=== PATIENT | female | born 1940 | race Caucasian/White ===

== ENCOUNTER 2017-10-08 05:16 | Observation (INO) | payer OTHER ==
[2017-10-08] MEDS ORDERED: DEXAMETHASONE 4 MG/ML VIAL IVP ONE (05:53)
[2017-10-08] MEDS ORDERED: ONDANSETRON 4 MG/2 ML VIAL IVP ONE (05:53)
[2017-10-08] MEDS ORDERED: GABAPENTIN 300 MG CAP PO ONE (05:53)
[2017-10-08] MEDS ORDERED: POVIDONE-IODINE 20 ML in SODIUM CL IRRIG SOLUTION 500 ML IRR ONE (05:53)
[2017-10-08] MEDS ORDERED: TRANEXAMIC ACID 3,000 MG in NS (SYRINGE) 50 ML IRR ONE (05:53)
[2017-10-08] MEDS ORDERED: TRANEXAMIC ACID 1,000 MG in NS 100 ML IV ONE (05:53)
[2017-10-08] MEDS ORDERED: ceFAZolin 2 GM/DEXTROSE 100 ML IV ONE (05:53)
[2017-10-08] MEDS ORDERED: ROPIVACAINE 0.2% 80 MG, EPINEPHrine 0.2 MG, KETOROLAC TROMETHAMINE 30 MG in SYRINGE 0 ML IU ONE (05:53)
[2017-10-08] MEDS ORDERED: FAMOTIDINE 20 MG TAB PO ONE (05:53)
[2017-10-08] MEDS ORDERED: ACETAMINOPHEN 325 MG TAB PO ONE (05:53)
[2017-10-08] MEDS ORDERED: LR 1,000 ML IV ONE (05:56)
[2017-10-08] MEDS ORDERED: ceFAZolin 1 GM/5 ML SYR ONE (06:44)
[2017-10-08] MEDS ORDERED: VANCOMYCIN 1 GM VIAL ONE (06:44)
--- NOTE | 2017-10-08 06:57 | PDHPUP ---
History & Physical Update H&P update statement: This history and physical update is based on an assessment of the patient which was completed after admission or registration (within 24 hours), but prior to the surgery/procedure. H&P update: H&P reviewed & patient examined
[2017-10-08] MEDS ORDERED: MIDAZOLAM 2 MG/2 ML VIAL ONE (07:09)
[2017-10-08] MEDS ORDERED: PROPOFOL 200 MG/20 ML VIAL ONE ×2 (07:10→08:12)
[2017-10-08] MEDS ORDERED: BUPIVACAINE 0.25% 30 ML SDV ONE (07:11)
[2017-10-08] MEDS ORDERED: BUPIVACAINE/DEXTROSE 7.5MG/ML 2 ML SPINAL AMP SP ONE (07:18)
[2017-10-08] MEDS ORDERED: NALOXONE HCL 0.4 MG/ML INJ IVP PRN (07:57)
--- NOTE | 2017-10-08 07:57 | PDANEPAE ---
ANE Past Medical History - Cardiovascular History Hx Hypertension: No Hx Arrhythmias: No Hx Chest Pain: No Hx Coronary Artery / Peripheral Vascular Disease: No Hx CHF / Valvular Disease: No Hx Palpitations: No Cardiovascular History Comment: hx of PAF none since 2013 - Pulmonary History Hx COPD: No Hx Asthma/Reactive Airway Disease: No Hx Recent Upper Respiratory Infection: No Hx Oxygen in Use at Home: No Hx Sleep Apnea: No Sleep Apnea Screening Result - Last Documented: Negative - Neurologic History Hx Cerebrovascular Accident: No Hx Seizures: No Hx Dementia: No - Endocrine History Hx Diabetes: No - Renal History Hx Renal Disorders: No - Liver History Hx Hepatic Disorders: No - Neurological & Psychiatric Hx Hx Neurological and Psychiatric Disorders: No - Cancer History Hx Cancer: No - Congenital Disorder History Hx Congenital Disorders: No - GI History Hx Gastrointestinal Disorders: No - Other Health History Other Health History: macular degeneration. factor V leiden - Chronic Pain History Chronic Pain: No - Surgical History Prior Surgeries: R TKA. bilat cataract. L knee scoped ANE Review of Systems Review of Systems: - Exercise capacity METS (RN): 6 METS ANE Patient History - Allergies Allergies/Adverse Reactions: No Known Allergies Allergy (Verified 09/24/17 13:17) - Home Medications Home Medications: Aspirin [Aspirin 325 mg (*)] 325 mg PO DAILY 09/24/17 [Last Taken 10/03/17] Atorvastatin Calcium [Lipitor 10 mg (*)] 10 mg PO HS 09/24/17 [Last Taken ] C/E/Zn/Cu/OM3/DHA/EPA/LUT/ZEAX [Preservision Areds 2 Softgel] 1 each PO BID [Last Taken 10/03/17] Herbals/Supplements -Info Only 1 ea PO DAILY 09/24/17 [Last Taken 10/03/17] [place]-3 Fatty Acids [Fish Oil 1000 mg (*)] 1,000 mg PO DAILY 09/24/17 [Last Taken 10/03/17] - NPO status NPO Since - Liquids (Date): 10/07/17 NPO Since - Liquids (Time): 22:00 NPO Since - Solids (Date): 10/07/17 NPO Since - Solids (Time): 21:00 - Smoking Hx Smoking Status: Never smoked - Family Anes Hx Family Hx Anesthesia Complications: none ANE Labs/Vital Signs - Vital Signs Blood Pressure: 146/85 Heart Rate: 57 Respiratory Rate: 16 O2 Sat (%): 95 Height: 172.72 cm Weight: 68.039 kg ANE Physical Exam - Airway Neck exam: FROM Mallampati Score: Class 1 Mouth exam: normal dental/mouth exam - Pulmonary Pulmonary: no respiratory distress, no rales or rhonchi - Cardiovascular Cardiovascular: regular rate and rhythym, no murmur, rub, or gallop - ASA Status ASA Status: II ANE Anesthesia Plan Anesthesia Plan: spinal Regional Anesthesia: continuous NB, adductor canal FNB
[2017-10-08] MEDS ORDERED: LR 500 ML IV PRN (08:03)
[2017-10-08] MEDS ORDERED: ALBUTEROL 3 ML DEYVIAL IH PRN (08:03)
[2017-10-08] MEDS ORDERED: fentaNYL 100 MCG/2 ML INJ IVP PRN (08:03)
[2017-10-08] MEDS ORDERED: ONDANSETRON 4 MG/2 ML VIAL IVP PRN ×2 (08:03→09:10)
[2017-10-08] MEDS ORDERED: DEXAMETHASONE 4 MG/ML VIAL IVP PRN (08:03)
[2017-10-08] MEDS ORDERED: LIDOCAINE 2% 5 ML SDV ONE (08:12)
[2017-10-08] MEDS ORDERED: ROPIVACAINE HCL 150 MG/30 ML INJ ONE (08:23)
--- NOTE | 2017-10-08 08:53 | POSTOPPROG ---
Post Op Note Date of Operation: 10/08/17 Surgeon: Mekhi Thurston Nipple Maker: Zuleika Anesthesiologist: Dr. Hannah Marc Anesthesia: IV Sedation, Spinal Post-op Diagnosis: Left knee severe degenerative arthritis Procedure: Left total knee arthroplasty Inf/Abcess present in the surg proc area at time of surgery?: No EBL: 50-100 (Adductor canal block with indwelling catheter in PACU.)
[2017-10-08] MEDS ORDERED: CYCLOBENZAPRINE 10 MG TAB PO PRN (09:10)
[2017-10-08] MEDS ORDERED: diphenhydrAMINE 25 MG CAP PO PRN (09:10)
[2017-10-08] MEDS ORDERED: METOCLOPRAMIDE 10 MG/2 ML VIAL IVP PRN (09:10)
[2017-10-08] MEDS ORDERED: BISACODYL 10 MG SUPP PR PRN (09:10)
[2017-10-08] MEDS ORDERED: MAGNESIUM HYDROXIDE 30 ML UDCUP PO PRN (09:10)
[2017-10-08] MEDS ORDERED: oxyCODONE IR 5 MG TAB PO PRN (09:10)
[2017-10-08] MEDS ORDERED: PROMETHAZINE HCL 25 MG/ML INJ IVP PRN (09:10)
[2017-10-08] MEDS ORDERED: NS 500 ML IV PRN (09:10)
[2017-10-08] MEDS ORDERED: ONDANSETRON DISINTEGRATING 4 MG TAB PO PRN (09:10)
[2017-10-08] MEDS ORDERED: traMADol 50 MG TAB PO PRN (09:10)
[2017-10-08] MEDS ORDERED: DIPHENOXYLATE/ATROPINE LOMOTIL 1 TAB PO PRN (09:10)
[2017-10-08] MEDS ORDERED: LACTULOSE 20 GM/30 ML UDCUP PO PRN (09:10)
[2017-10-08] MEDS ORDERED: PROMETHAZINE HCL 25 MG SUPPR PR PRN (09:10)
[2017-10-08] MEDS ORDERED: POLYETHYLENE GLYCOL 3350 17 GM PKT PO PRN (09:10)
[2017-10-08] MEDS ORDERED: TEMAZEPAM 15 MG CAP PO PRN (09:10)
[2017-10-08] MEDS ORDERED: LR 1,000 ML IV SCH (09:30)
--- NOTE | 2017-10-08 09:35 | GOP ---
[f rep st] OPERATIVE REPORT DATE OF OPERATION: 10/08/2017 SURGEON: Mekhi Thurston MD OUTREACH SPECIALIST: 1. Ilir Bolden, PAC. 2. Corona Padilla TRACTION POWER ENGINEER. ANESTHESIA: A combination of Marcaine spinal, IV sedation, and adductor canal block. ANESTHESIOLOGIST: Hannah Marc MD. PREOPERATIVE DIAGNOSIS: Left knee degenerative arthritis. POSTOPERATIVE DIAGNOSIS: Left knee degenerative arthritis. PROCEDURE PERFORMED: 10/08/2017, left total knee arthroplasty, cemented, Rivera and Nephew Journey II , posterior stabilized. FINDINGS: DESCRIPTION OF PROCEDURE: The patient was given 2 g of IV Ancef preoperatively within 60 minutes of surgery. She also received 1000 mg of IV tranexamic acid. She was placed on the operating room tabl e and given spinal anesthesia with Marcaine by Dr. Marc. She was then placed supine and given IV s edation. A Cheng catheter was not used. She wore a MILADYS stocking and SCD on the nonoperative leg. H er left lower extremity was prepped with ChloraPrep from the upper thigh tourniquet to the tips of th e toes. It was draped free using sterile sheets, stockinette, and Ioban plastic adhesive drapes. Th e lower leg was wrapped with compressive Coban. The leg was exsanguinated with elevation and a 6-inc h compressive wrap and the pneumatic tourniquet was inflated to 250 mmHg. The World Health Organization time-out was performed to verify the correct patient identity and the c orrect surgical side and site. The Drew time-out was also performed. The GreenIQayo leg holding device was sterilely attached to the operating room table and used throughout the procedure to help position the knee. A straight midline incision made centered on the patella. Subcutaneous tissues were sharply divided, and hemostasis was obtained using electrocautery. A media l subcutaneous flap was developed, and the capsule and synovium were opened in a medial parapatellar fashion. Extensive degenerative changes were present in the medial compartment. She was eroded down to subchondral bone on both the medial femoral condyle and medial tibial plateau. She was also erod ed down to subchondral bone on the medial facet of her patella. The medial capsule and periosteum we re elevated off the rim and medial tibial plateau all the way around to the posteromedial corner. He r medial collateral ligament was released enough to balance the medial side of the knee. In order to improve exposure, her patella was prepared first. The original thickness of the patella was measured. Peripheral osteophytes removed. I cut a flat surface on the back of the patella. She was sized for a 41 mm round resurfacing patellar component. I removed enough bone from the patella such that the remaining bone plus the thickness of the patellar component recreated the original thic kness of the patella. The composite thickness was 23 mm. The intramedullary alignment guide system was used to set up the distal femoral cut. She was cut in 6 degrees of valgus. Because of a slight preoperative flexion contracture, I made a +2 mm cut on the distal femur. The sizing jig was used to determine proper femoral sizing. She was a true size 6 wi thout a shift. The 5-in-1 cutting block was applied, and the anterior and posterior condylar cuts an d chamfer cuts were made. The final jig was used to remove the central portion of the distal femur t o accommodate the posterior stabilized femoral component. I was careful to determine proper rotation by referencing off Whitesides line and other bony landmarks. Each cut was checked for accuracy befo re and after it was made. The femur was sized for a size 6 posterior stabilized component. Next, the patella was prepared. The proximal tibia was cut using the extramedullary alignment guide system. The cut was made in a few degrees of posterior slope. I was careful to achieve proper varus /valgus alignment and proper rotation. The posterior compartment was cleared of meniscal remnants. Osteophytes were removed from the back of the femoral condyles. I checked the flexion/extension gaps , and they were equal and balanced. The tibia was sized for a size 5 component. With the trial comp onents in place, I selected a 9 mm polyethylene posterior stabilized tibial insert. The knee came to full extension and flexed to 130 degrees of flexion. The collateral ligaments were stable and tabby gus in 90 degrees of flexion and full extension. The trial patellar button was applied, and patellar tracking was checked. Tracking was excellent without any digital pressure. 40 mL of the joint anesthetic cocktail were injected into the posterior capsule, the quadriceps muscl e and tendon areas, and the subcutaneous tissues along the skin edges. The surfaces were prepared for cementing. They were carefully cleaned with the pulsating lavage irri gation and thoroughly dried. The aXess americaoOcho Globalt device was used to blow dry the cancellous surfaces. A do uble batch of high viscosity methylmethacrylate cement with 2 g of powdered vancomycin added was mixe d. While it was still in a doughy state, all 3 components were cemented in place. Excess cement was removed before it hardened. The 9 mm tibial trial was re-tried and was the proper thickness. The actual component was inserted a nd locked into place. The knee was thoroughly irrigated 1 final time with a dilute Betadine solution . The tourniquet was deflated and the total tourniquet time was 45 minutes. I then applied local trane xamic acid to the knee. The knee was packed with a lap and the knee was wrapped with a 6-inch Juan Alberto wr ap for 3 or 4 minutes. The vastus medialis portion of the extensor mechanism was repaired with several interrupted figure-of -eight #2 FiberWire sutures. The capsule and synovium were closed first with multiple interrupted fi [id number] 0 PDS sutures, followed by a running #2 barbed Ethicon Stratafix PDO suture. The subcu taneous tissues were closed with a running 0 barbed Ethicon Stratafix Monoderm suture. The skin was closed with a running 3-0 barbed Ethicon Stratafix Monoderm subcuticular suture. The skin was sealed with half-inch Steri-Strips. The wound was covered with a large Mepilex waterproof dressing and a 6 -inch compressive wrap. A long-leg MILADYS stocking and SCD were applied, followed by the cooling device . The Mepilex sacral dressing was applied. I used a size 6 cemented Rivera and Nephew Oxinium posterior stabilized femoral component, a size 5 ce mented tibial base plate, a 9 mm posterior stabilized tibial insert, and a 41 mm cemented round all-p olyethylene resurfacing patellar component. Estimated blood loss following deflation of the tourniquet was about 100 cc. The sponge and needle count were correct on 2 occasions. She was awakened from anesthesia, transferred to her gurney, and taken to PACU in satisfactory condit ion. There were no recognized intraoperative complications. In the PACU, for additional postoperati ve pain control, Dr. Marc performed an adductor canal block with an indwelling catheter. Arnoldo Bolden and Corona Padilla acted as surgical assistants. Their assistance was a medical necess ity for safe completion of the procedure. /[id number]/MODL
--- NOTE | 2017-10-08 10:05 | POSTANESTH ---
Post Anesthetic Evaluation Cardiovascular Status: Normal, Stable, Similar to Pre-Op Cond Respiratory Status: Normal, Stable, Similar to Pre-op Cond. Level of Consciousness/Mental Status: Can Participate in Eval Pain Control: Adequate, Prn Tx Ordered Nausea/Vomiting Control: Adequate, Prn Tx Ordered Complications Possibly Related to Anesthesia: None Noted (Adductor canal catheter placed in PACU under US guidance, sterile technique)
[2017-10-08] MEDS: KETOROLAC 15 MG/1 ML SDV IVP SCH ×3 (11:48→23:03)
[2017-10-08] MEDS: ACETAMINOPHEN 325 MG TAB PO SCH ×3 (11:48→23:03)
[2017-10-08] MEDS: ceFAZolin 2 GM/DEXTROSE 100 ML IV SCH ×2 (14:22→22:22)
[2017-10-08] MEDS ORDERED: ATORVASTATIN CALCIUM 10 MG TAB PO SCH (21:00)
[2017-10-08] MEDS: SENNOSIDES/DOCUSATE SODIUM TAB PO SCH (22:21)
[2017-10-08] MEDS: PRESERVISION AREDS2 FORMULA EYE VIT 1 EACH PO SCH (22:21)
[2017-10-08] MEDS: FAMOTIDINE 20 MG TAB PO SCH (22:28)
[2017-10-09] MEDS: KETOROLAC 15 MG/1 ML SDV IVP SCH (05:48)
[2017-10-09] MEDS: ACETAMINOPHEN 325 MG TAB PO SCH (05:49)
[2017-10-09 07:19] VITALS: BP 127/68
--- NOTE | 2017-10-09 08:08 | SOAPPROG ---
SOAP Progress Note Assessment/Plan: Assessment: Afebrile. Min pain Up and walking in vigil. H/H is good. Films look good. Plan: PT for stairs. DC today. Driving back to [place] with daughter today. 10/09/17 08:07 Objective: Vital Signs Temp Pulse Resp BP Pulse Ox 36.5 C 52 L 16 127/68 H 95 10/09/17 07:16 10/09/17 07:16 10/09/17 07:16 10/09/17 07:16 10/09/17 07:16 Laboratory Results 10/09/17 04:20 10/08/17 10/09/17 10/10/17 05:59 05:59 05:59 Intake Total 2984 Output Total 1620 Balance 1364 ICD10 Worksheet Patient Problems: Problems Problem Status Onset Osteoarthritis of left knee Acute
[2017-10-09] MEDS: FAMOTIDINE 20 MG TAB PO SCH (08:16)
[2017-10-09] MEDS: PRESERVISION AREDS2 FORMULA EYE VIT 1 EACH PO SCH (08:16)
[2017-10-09] MEDS: SENNOSIDES/DOCUSATE SODIUM TAB PO SCH (08:16)
[2017-10-09] MEDS: FERROUS SULFATE 140 MG TAB.ER PO SCH ×2 (08:16→08:19)
--- NOTE | 2017-10-09 08:21 | GDS ---
[f rep st] DISCHARGE SUMMARY ADMISSION DIAGNOSIS: Left knee severe degenerative arthritis. DISCHARGE DIAGNOSIS: Left knee severe degenerative arthritis. PROCEDURE PERFORMED: October 08, 2017, a left total knee arthroplasty. POSTOPERATIVE COMPLICATIONS: None. CONDITION ON DISCHARGE: Improved. DESCRIPTION OF HOSPITAL COURSE: The patient was admitted to the hospital on the morning of surgery. Her admission CBC was normal. The same day, under a combination of Marcaine, spinal, IV sedation, a nd adductor canal block she underwent a left total knee arthroplasty. Postoperatively, she was treat ed with multimodal DVT prophylaxis. She has Leiden Factor V deficiency. She was treated additionall y with Xarelto. She was seen by Physical Therapy and made excellent progress with ambulation, knee r mark of motion and stairs. By the time of discharge, she was afebrile and was independent walking. DISPOSITION: The patient is returning to her home in [place], [place]. She will go to outpat ient PT in [place]. She may progress to full weightbearing as tolerated. She will continue Xa relto 10 mg a day for 28 days. Continue MILADYS stockings for 1 week. I will see her back in the office in 3 months. If any problems, she is to call me at the office. /[id number]/MODL
[2017-10-09] MEDS ORDERED: RIVAROXABAN 10 MG TAB PO SCH (09:00)
[2017-10-09] MEDS ORDERED: BUPIVACAINE 0.25% 30 ML SDV ONE (10:11)
[2017-10-09] MEDS ORDERED: LIPID EMULSION 20% 100 ML IV PRN (10:19)
--- NOTE | 2017-10-09 10:40 | PDPAINCON ---
Pain Management Consultation Patient referred by : Bertrand - Subjective Pain at rest (/10): 1 Pain with activity (/10): 3 Pain is: low, well controlled Activity: able to ambulate - Objective Technique: continuous peripheral nerve block Site: femoral (Adductor canal) Continuous infusion: bupivicaine Bolus (ml): 20 Catheter site: clean, dry, intact Sensory and motor exam: consistent with block Vital signs: stable - Assessment/Plan Assessment/Plan: pain well-controlled, continue current mgmt (Monitors applied. Bolus 20ml 0.25% bupiv after -asp. No complications observed after 15 min. Catheter removed intact.)
--- NOTE | 2017-10-09 11:11 | ASMTLACE ---
ABENAE Length of stay for Answers: 2 days current admission Acuity / Level of Answers: Yes Care: Did the patient have an inpatient admission? Comorbidities - select Answers: Other Notes: Macular all that apply degeneration; Factor V leiden # of Emergency department Answers: 0 visits in the last 6 months Score: 6 Date Signed: 10/09/2017 11:11 AM Electronically Signed By:AVIS Henderson
--- NOTE | 2017-10-09 11:13 | ASMTCMCOM ---
CM Note CM Note Notes: PT rec home/outpatient. Pt medically stable for d/c, no CM d/c needs identified. Date Signed: 10/09/2017 11:12 AM Electronically Signed By:AVIS Henderson
== END 2017-10-09 11:43 | disposition home or self-care (01) ==
LOC: F3N 05:16
PROVIDERS: ADMIT Orthopaedic Surgery; ATTEND Orthopaedic Surgery
PROC: 0SRD0JZ Replacement of Left Knee Joint with Synthetic Substitute, Open Approach (ICD-10-PCS; principal; 2017-10-08 07:15)
DX: M17.12 Unilateral primary osteoarthritis, left knee (principal)
CPT/HCPCS: 27447; 73560; 77073; 88311; 97116; 97161; 97165; 97530; C1713; C1776; G8978; G8979; G8980; G8987; G8988; G8989; J0171; J0690; J1100; J1885; J2250; J2405; J2704; J2795; J3370